=== PATIENT | female | born 1945 | race Caucasian/White ===

== ENCOUNTER → 2017-12-28 11:20 | Outpatient (CLI) | payer MEDICARE, SELFPAY ==
--- NOTE | 2017-12-28 11:20 | DT_ITS ---
This patient was seen during an EMR downtime December 28, 2017 - January 04, 2018. This patient may have a combination of paper and electronic documentation or all paper documentation. All documentation is viewable within the e-chart portion of [employer] for each patient visit.
[2018-01-03 03:55] LABS: Hemoglobin 13.6 g/dl (12.0-15.0); Mean Corp Hgb Conc 31.6 g/gl (32-36); Mean Corpuscular Hgb 31.1 pg (27.0-32.0); Mean Corpuscular Volume 98.2 fL (81-99); RBC Distribution Width CV 14.2 % (11.6-14.6); RBC Distribution Width SD 50.3 fl (35.1-43.9); Red Blood Count 4.38 M/mm3 (4.2-5.4); White Blood Count 3.3 K/mm3 (4.4-11.0)
[2018-01-03 03:56] LABS: Absolute Lymphocyte Count 1.18 X10^3/ul (0.83-4.51); Absolute Neutrophil Count 1.6 X10^3/uL (2.0-7.7); Basophil# 0.02 X10^3/uL; Basophil% 0.6 % (0-1); Eosinophil# 0.12 X10^3/uL; Eosinophils% 3.7 % (0-5); Lymphocyte # 1.18 X10^3/ul (4.0); Mean Platelet Vol. 12.5 fl (6.2-12.0); Monocyte# 0.36 X10^3/uL; Neutrophil # 1.59 X10^3/uL (2.7-7.7); Neutrophil % 48.4 % (47-70); POSITIVE COUNT NO; POSITIVE DIFFERENTIAL NO; POSITIVE MORPHOLOGY NO; Platelet Count 175 K/mm3 (150-450)
[2018-01-03 04:19] LABS: BUN 15 mg/dL (7-18); BUN/Creat Ratio 18.3 RATIO (10-20); Creatinine, Serum 0.82 mg/dL (0.55-1.02); EST Glomerular Filtration Rate 72 mL/min (>60); Est Glom Filt Rate - Afr Amer 87 mL/min (>60); Glucose 74 mg/dL (74-106)
[2018-01-03 04:20] LABS: Albumin, Serum 3.9 g/dL (3.2-5.0)
[2018-01-03 08:43] LABS: AST(SGOT) 23 U/L (15-37); Alkaline Phosphatase 56 U/L (45-117); Calcium,Total 8.5 mg/dL (8.5-10.1)
[2018-01-03 08:44] LABS: Alanine Aminotransfer ALT/SGPT 28 U/L (13-56); Anion Gap 8 (5-15); Chloride 106 mmol/L (98-107); Potassium 4.3 mmol/L (3.5-5.1); Sodium Level 142 mmol/L (136-145); Thyroid Stim Hormone (TSH) 4.06 uIU/mL (0.358-3.74)
[2018-01-04 10:52] LABS: Vitamin B12 380 pg/mL (211-911); Vitamin D,25 Hydroxy 10.6 ng/mL (29.95-100.01)
== END ==
PROVIDERS: Family Provider Family Medicine; PCP Family Medicine; Visit Provider Family Medicine
DX: R53.83 Other fatigue (principal); R03.0 Elevated blood-pressure reading, without diagnosis of hypertension
CPT/HCPCS: 36415; 80053; 82306; 82607; 84443; 85025